=== PATIENT | male | born 1960 | race Caucasian/White ===

== ENCOUNTER 2024-06-03 07:22 | Day surgery (SDC) | payer OTHER ==
[2024-06-02 10:16] VITALS: BMI 20.5
[2024-06-03] MEDS ORDERED: PROPOFOL 60 ML ONE (08:10)
[2024-06-03] MEDS ORDERED: fentaNYL 50 mcg/mL 1 mL Vial ONE ×2 (09:08→10:14)
[2024-06-03] MEDS ORDERED: PROPOFOL 40 ML ONE (09:08)
[2024-06-03] MEDS ORDERED: MINERAL OIL/WHITE PETROLATUM 3.5 GM TUBE ONE (09:24)
[2024-06-03 09:25] LABS: Hematocrit 43.8 % (38.8-50.0); Hemoglobin 14.2 g/dL (13.5-17.5)
[2024-06-03] MEDS ORDERED: EPINEPHrine 1 MG/ML VIAL ONE (09:41)
[2024-06-03 09:57] LABS: Anion Gap 17 mmol/L (10-20); BUN (Urea Nitrogen) 8 mg/dL (8.4-25.7); Calc. Creatinine Clearance 69 mL/min (70-130); Calcium 10.2 mg/dL (7.8-10.44); Carbon Dioxide 25 mmol/L (23-31); Chloride 100 mmol/L (98-107); Estimated GFR 97; Glucose 131 mg/dL (80-115); Potassium 3.5 mmol/L (3.5-5.1); Sodium 138 mmol/L (136-145)
[2024-06-03] MEDS ORDERED: SUGAMMADEX SODIUM 200 MG/2 ML VIAL ONE (10:17)
[2024-06-03] MEDS ORDERED: Hydrocodone-Acetamin 15 ML UDCUP ONE (11:48)
== END 2024-06-03 12:15 | disposition home or self-care (01) ==
LOC: CSHSDC 07:22
PROVIDERS: ATTEND Specialist
PROC: 0CBM8ZX Excision of Pharynx, Via Natural or Artificial Opening Endoscopic, Diagnostic (ICD-10-PCS; principal; 2024-06-03)
PROC: 0CBV8ZX Excision of Left Vocal Cord, Via Natural or Artificial Opening Endoscopic, Diagnostic (ICD-10-PCS; 2024-06-03)
DX: C00-D49 Neoplasms (principal); J38.3 Other diseases of vocal cords; K13.79 Other lesions of oral mucosa; I10 Essential (primary) hypertension; J32.9 Chronic sinusitis, unspecified; Z87.891 Personal history of nicotine dependence; Z79.82 Long term (current) use of aspirin; Z79.899 Other long term (current) drug therapy
CPT/HCPCS: 31536; 80048; 85014; 85018; 93005; J2704; J3010; 36415; 88302; 88305; 93010; J0171